=== PATIENT | female | born 1995 | race Caucasian/White ===

== ENCOUNTER → 2016-11-25 | Outpatient (CLI) | payer OTHER | END | disposition home or self-care (01) | LOC: C.PAPS 11:32 | PROVIDERS: ATTEND Physician Assistant | DX: Z12.4 Encounter for screening for malignant neoplasm of cervix (principal); Z11.51 Encounter for screening for human papillomavirus (HPV) ==

== ENCOUNTER 2023-10-20 07:26 | Inpatient (IN) ==
[2023-10-20] MEDS ORDERED: OXYTOCIN 30 UNITS/NSS 30 UNITS/500 ML BAG IV PRN ×2 (08:53)
[2023-10-20] MEDS ORDERED: LACTATED RINGER'S 1,000 ML IV PRN (08:53)
--- NOTE | 2023-10-20 09:06 | History & Physical Report ---
Date of Service October 20, 2023 Assessment & Plan (1) Encounter for induction of labor: (2) Gestational diabetes: Plan admit, iv, labs. arom done and will see how that adds to current labor pattern. add pitocin if needed. fhts categ 1. check bsgs. Admission and Anticipated Discharge Date Admission Date: October 20, 2023 History of Present Illness Chief Complaint: planned induction Primary Care Provider: MALIK Newell 27yo at 40+wks eggordy presents to LD for planned induction due to advanced cervical dilation. Having some ctx since about 4am. No rom, no vb. +FM PNC c/b 1. GDM, diet controlled. PNL rh pos, ri, gbs neg OBH: g1 GYNH: nl paps no stds. Allergies Allergy/AdvReac Type Severity Reaction Status Date / Time pollen extracts Allergy Intermediate Verified 10/19/23 13:42 No Known Drug Allergies Allergy Verified 10/19/23 13:42 Home Medications Medication Instructions Recorded Confirmed Type docosahexaenoic acid [ DHA] PO 02/02/23 10/19/23 History acetone (urine) test (Ketone Urine #50 ea 05/21/23 10/19/23 Rx Test strips) blood sugar diagnostic (OneTouch #150 ea 05/21/23 10/19/23 Rx Verio test strips) blood-glucose meter (OneTouch #1 ea 05/21/23 10/19/23 Rx Verio Reflect Meter) lancets 33 gauge (OneTouch Delica #150 ea 05/21/23 10/19/23 Rx Plus Lancet) Patient History Medical History (Updated 10/20/23 @ 09:06 by Key Mahmood MD, FACOG) Varicella vaccination Surgical History H/O oral surgery Family History (Updated 05/21/23 @ 13:07 by Placido Sierra) Aunt Breast cancer Mother Breast cancer, Onset Age: 58 Ovarian cancer Father Diabetes Denies family history of Prostate cancer Myocardial infarction Social History Smoking Status: Never smoker Do You Dip or Chew Tobacco: No; Hx Alcohol Use: Yes Hx Substance Use: No Preferred Language: Guyanese Communication Ability: Effective Visual Impairment: No Limitations Hearing Ability: Normal 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 Beliefs That Will Affect Care: None marital status: marital status details: Beau Peace (27) [phone] Current Living Situation: Spouse Current Living Situation Comment: lives with spouse, no pets current occupational status: employed 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 Feels Safe at Home: Yes Safety Concerns: Feels Safe At This Time Childhood Exposure to Second-Hand Smoke: No Dental Care, Regularly: No Physical Activity Frequency: Does not Exercise Seatbelt Use: always Sunscreen Use: Yes Assistive Devices: None Review of Systems as per Subjective / HPI Physical Exam Constitutional: WD/WN, vitals as above Respiratory: normal respiratory effort, lungs clear to auscultation Cardiovascular: Rate/Rhythm: regular rate and regular rhythm Gastrointestinal (Abdomen): soft gravid nt efwe 7-8# Musculoskeletal: no edema nontender calves Neurologic: grossly normal Psychiatric: A+Ox3, euthymic affect Genitourinary: Manual OB Exam: + cervical dilation 6 cm, + cervical effacement 100%, + station 0 and + amniotic fluid (arom) clear OB Exam Monitor Tracing: + external FHT monitor used, + external uterine monitor used (q3-4), + category I and + normal FHT variability Results & Data Vital Signs (Past 12 Hours) Vital Signs Temp Pulse BP 10/20/23 07:44 80 108/58 L 10/20/23 07:40 98.6 F 80 108/58 L Coding Level of Care Code None Diagnoses Encounter for induction of labor Z34.90 Gestational diabetes O24.419
[2023-10-20 09:45] LABS: Hematocrit (blood only) 39.2 % (37.0-47.0); Hemoglobin 13.1 g/dl (12.0-16.0); Mean Corpuscular Hemoglobin 30.3 pg (25.0-34.0); Mean Corpuscular Hgb Conc 33.4 g/dL (32.0-36.0); Mean Corpuscular Volume 90.7 fL (80.0-100.0); Mean Platelet Volume 11.1 fL (9.4-12.4); Platelet Count 195 K/uL (130-400); RDW Coefficient of Variation 13.4 % (11.5-14.5); RDW Standard Deviation 43.9 fL (36.4-46.3); Red Blood Count 4.32 M/uL (4.20-5.40); White Blood Count 13.04 K/ul (4.8-10.8)
[2023-10-20] MEDS: LIDOCAINE 1% LOCAL 20 ML VIAL INFIL PRN (12:50)
[2023-10-20] MEDS: OXYTOCIN 30 UNITS/NSS 30 UNITS/500 ML BAG IV PRN (12:58)
--- NOTE | 2023-10-20 13:15 | Delivery Summary ---
Vaginal Delivery Summary Date of Service October 20, 2023 Vaginal Delivery Summary and 3rd Degree LAC (partial) The patient dilated to complete and pushed to deliver a viable male infant Apgars 7 and 9 via over partial 3rd degree perineal laceration. Body cord noted. Mouth and nose bulb suctioned at perineum. Shoulders and body delivered with ease. Infant was vigorous and crying at . Cord clamped at 30 seconds of life and to maternal abdomen where the cord was then doubly clamped and cut. Placenta delivered spontaneously and intact, three-vessel cord. Hemostasis achieved with dilute pitocin and uterine massage and drainage of the bladder for approximately 100 cc under sterile conditions. Cervix and sulci intact. Laceration repaired in layers after 1% local lidocaine anesthesia with 2-0 and 3-0 vicryl. EBL 921 cc. Mother and baby stable in recovery. [facility] [place] Charge Delivery Type Details: and 3rd Degree LAC (partial)
[2023-10-20] MEDS ORDERED: BENZOCAINE 20% SPRY 85 APPLN/85 GM CAN EXT PRN (13:24)
[2023-10-20] MEDS ORDERED: HYDROCORTISONE ACETATE 25 MG SUPP PR PRN (13:24)
[2023-10-20] MEDS ORDERED: bisacodyL 10 MG SUPP PR PRN (13:24)
[2023-10-20] MEDS ORDERED: oxyCODONE/ACETAMINOPHEN 5mg/325mg TAB PO PRN (13:24)
[2023-10-20] MEDS ORDERED: OXYTOCIN 20 UNITS/1002ML LR IV ONE (13:26)
[2023-10-20] MEDS: OXYTOCIN 20 UNITS/LR 1,002 ML IV SCH (13:29)
[2023-10-20] MEDS: IBUPROFEN 600 MG TAB PO PRN (13:54)
[2023-10-20] MEDS: ACETAMINOPHEN 325 MG TAB PO PRN (13:55)
[2023-10-20] MEDS: DIPHTHER/TETAN/PERTUS Vaccine (Tdap, Adol/Adult) 0.5mL IM ONE (19:03)
[2023-10-20] MEDS: DOCUSATE SODIUM 100 MG CAP PO SCH (20:46)
[2023-10-21 06:44] LABS: Hematocrit (blood only) 29.5 % (37.0-47.0); Hemoglobin 9.8 g/dl (12.0-16.0)
--- NOTE | 2023-10-21 07:06 | Obstetrical Progress Note ---
Date of Service <Marianne Osborne DO - Last Filed: 10/21/23 07:06> October 21, 2023 Assessment & Plan <Marianne Osborne DO - Last Filed: 10/21/23 07:06> (1) care following vaginal delivery: Feels well today. Eating well, voiding well, ambulating well. Pain well controlled with motrin. Routine care; OOB, ambulation, continue regular diet. Anticipate discharge 24-48 hours after , today or tomorrow. After discharge will have 6 week follow-up with Dr. Mahmood. <Key Mahmood MD, FACOG - Last Filed: 10/21/23 08:13> (1) care following vaginal delivery: Subjective <Marianne Osborne DO - Last Filed: 10/21/23 07:06> Pt is a 27 y/o female who is PPD#1 following at 40+ weeks. Today, pt states she is feeling really well. She states that her pain has been fairly mild and motrin has been helping quite a lot. She states her bleeding has improved significantly as well. She has been ambulate, voiding, and tolerating i ntake since the delivery without issue. She is and states it is going okay so far, baby just seems pretty sleepy and won't always latch. She states she is thinking about going later today if possible, or tomorrow morning. Constitutional: no fever, no chills or no sweats Respiratory: no dyspnea Cardiovascular: no chest pain or no palpitations Breast: no breast pain Genitourinary (female): no dysuria Neurologic: no headache(s) no changes in vision, no headaches Physical Exam <Marianne Osborne DO - Last Filed: 10/21/23 07:06> General: Alert, oriented. No acute distress. Cardiac: Regular rate and rhythm, no murmurs, rubs, or gallops. Respiratory: Clear to auscultation bilaterally, no wheezes/rales/rhonchi. No increased work of breathing. Symmetrical chest rise. No respiratory distress. Abdomen: Soft, nontender, nondistended. Bowel sounds present. Uterus: Uterine fundus firm, palpable just below the umbilicus. Lower extremities: No lower extremity edema or swelling. No deep calf pain. Results & Data <Marianne Osborne DO - Last Filed: 10/21/23 07:06> Vital Signs (Past 12 Hours) Vital Signs Temp Pulse Resp BP 10/20/23 23:48 36.6 C 92 H 18 105/67 10/20/23 19:43 36.8 C 86 18 101/66 Supervising Physician <Key Mahmood MD, FACOG - Last Filed: 10/21/23 08:13> Co-Signing Physician Notes Resident Physician Supervision Note: I was present with Dr. Osborne during the history and exam. I discussed the case with the resident and agree with the findings and plan as documented in the note. Any exceptions or clarifications are listed here: doing well, eating, voiding, ambulating, bottom is sore but pain well controlled with po pain meds. hgb noted. abd soft ff 2 down nt, ext nt calves. ppd#1 s/p , partial 3rd degree laceration, pph. doing well, may want to go home later today, aware to keep bowels soft, routine instructions reviewed. rhpos, ri, . Documented By: Key Mahmood MD, FACOG Resident Activity Tracking <Marianne Osborne DO - Last Filed: 10/21/23 07:06> Resident Involvement: Resident Care Provided Care Provided: OB Delivery
[2023-10-21] MEDS: PRENATAL VITAMIN 1 TAB PO SCH (07:43)
--- NOTE | 2023-10-22 06:58 | Obstetrical Progress Note ---
Date of Service <Marianne Osborne DO - Last Filed: 10/22/23 06:58> October 22, 2023 Assessment & Plan <Marianne Osborne DO - Last Filed: 10/22/23 06:58> (1) care following vaginal delivery: Continuing to do well. Eating well, ambulating well, voiding without issue. Pain well controlled with motrin. Routine care; OOB, ambulation, continue regular diet. Anticipate discharge 24-48 hours after , today. After discharge will have 6 week follow-up with Dr. Mahmood. <Taina Abraham MD, FACOG - Last Filed: 10/22/23 07:34> (1) care following vaginal delivery: Subjective <Marianne Osborne DO - Last Filed: 10/22/23 06:58> Pt is a 27 y/o female who is PPD#2 following at 40+ weeks. Today, pt states she is continuing to do well. No questions or concerns at this time. No issues with tolerating intake, voiding, or ambulating. Bleeding and cramping are very mild. Baby seems to have gotten a better hold on latching and so breast feeding has been doing really well. Would like to go home today. Constitutional: no fever, no chills or no sweats Respiratory: no dyspnea Cardiovascular: no chest pain or no palpitations Breast: no breast pain Genitourinary (female): no dysuria Neurologic: no headache(s) Physical Exam <Marianne Osborne DO - Last Filed: 10/22/23 06:58> General: Alert, oriented. No acute distress. Cardiac: Regular rate and rhythm, no murmurs, rubs, or gallops. Respiratory: Clear to auscultation bilaterally, no wheezes/rales/rhonchi. No increased work of breathing. Symmetrical chest rise. No respiratory distress. Abdomen: Soft, nontender, nondistended. Bowel sounds present. Uterus: Uterine fundus firm, palpable just below the umbilicus. Lower extremities: No lower extremity edema or swelling. No deep calf pain. Results & Data <Marianne Osborne DO - Last Filed: 10/22/23 06:58> Vital Signs (Past 12 Hours) Vital Signs Temp Pulse Resp BP Pulse Ox O2 Del Method 10/22/23 00:02 36.7 C 80 18 105/69 98 Room Air 10/21/23 19:20 36.7 C 86 18 102/66 97 Room Air Supervising Physician <Taina Abraham MD, FACOG - Last Filed: 10/22/23 07:34> Co-Signing Physician Notes Resident Physician Supervision Note: I was present with Dr. Drake during the history and exam. I discussed the case with the resident and agree with the findings and plan as documented in the note. Any exceptions or clarifications are listed here: [None] Documented By: Taina Abraham MD, FACOG Resident Activity Tracking <Marianne Osborne DO - Last Filed: 10/22/23 06:58> Resident Involvement: Resident Care Provided Care Provided: Adult Hospital Medicine
[2023-10-22 08:05] VITALS: BP 105/59; PULSE 81; RESP 20; TEMP 97.7; O2SAT 99
== END 2023-10-22 11:40 | disposition home or self-care (01) | DRG 768 ==
LOC: 4S1 07:26 → 4E2 16:11